=== PATIENT | female | born 1950 | race African-American/Black ===

== ENCOUNTER 2018-09-03 09:46 | Emergency (ER) | payer OTHER, MEDICARE ==
[~2018-09-03] VITALS: Ht 172.7 cm; Wt 70.8 kg
[2018-09-03 10:12] VITALS: BP 158/79; Ht 172.7 cm; Wt 70.8 kg
== END 2018-09-03 12:39 | disposition home or self-care (01) ==
LOC: ED 09:46
DX: M25.552 Pain in left hip (principal); I10 Essential (primary) hypertension; E11.9 Type 2 diabetes mellitus without complications; Z98.890 Other specified postprocedural states
CPT/HCPCS: J1885